=== PATIENT | female | born 1985 | race Two or more races ===

== ENCOUNTER 2025-04-17 12:08 | Emergency (ER) | payer OTHER, SELFPAY ==
[2025-04-17 12:29] VITALS: BP 126/80; PULSE 82; RESP 18; TEMP 36.6; O2SAT 99
--- NOTE | 2025-04-17 12:37 | ED.URI ---
HPI - URI/Sore Throat General Chief Complaint: Upper Respiratory Infection Stated Complaint: Congestion/Sore Throat/Ear Pain Time Seen by Provider: 04/17/25 12:37 History of Present Illness HPI Narrative: 39 y/o female presented for c/o nasal congestion, sinus pressure and cough for over one week. Now reports right ear pain and sore throat. Has been taking multiple otc meds without much improvement. Denies cp,sob, wheezing, n/v/d/f/c. Related Data Allergies Allergy/AdvReac Type Severity Reaction Status Date / Time No Known Allergies Allergy Verified 04/17/25 12:37 Review of Systems Review of Systems: CONSTITUTIONAL: Denies body aches, fever, chills, or sweats. EYES: Denies visual changes, redness, or discharge. ENT: reports sore throat rhinorrhea, congestion, otalgia. CARDIOVASCULAR: Denies chest pain, palpitations, or edema. RESPIRATORY: Denies dyspnea. GASTROINTESTINAL: Denies abdominal pain, nausea, vomiting, or diarrhea. SKIN: Denies rash NEUROLOGIC: Denies headache Exam Narrative: GENERAL: mildly Ill-appearing, no acute distress. EYES: conjunctivae clear ENT: Mucous membranes moist. nasal congestion. TM pearly saldivar with normal light reflex bilaterally; no tragal tenderness. Oropharynx erythematous without lesions. No drooling, no hoarseness, no trismus, uvula midline. No tripod positioning, hot potato voice, or soft palate swelling. NECK: Supple. No lymphadenopathy CHEST: Clear to auscultation, breath sounds equal. No respiratory distress, speaks in full sentences. HEART: Regular rate and rhythm. No murmur heard. SKIN: Warm, dry, no rash. NEURO: Alert and oriented x3. Course Course Emergency Course: Patient is aware of diagnosis, understands and agrees to treatment plan. Anticipatory guidance given. Patient agrees to follow-up as directed and is aware of reasons to seek care at the emergency department. Portions of this record may have been created with voice recognition software Level of Care: Express Care Visit Vital Signs Vital signs: Vital Signs Temperature 98 F 04/17/25 12:29 Pulse Rate 82 04/17/25 12:29 Respiratory Rate 18 04/17/25 12:29 Blood Pressure 126/80 04/17/25 12:29 Pulse Oximetry 99 04/17/25 12:29 Oxygen Delivery Room Air 04/17/25 12:29 Temperature 98 F 04/17/25 12:29 Pulse Rate 82 04/17/25 12:29 Respiratory Rate 18 04/17/25 12:29 Blood Pressure 126/80 04/17/25 12:29 Pulse Oximetry 99 04/17/25 12:29 Oxygen Delivery Room Air 04/17/25 12:29 MDM - URI/Sore Throat MDM Narrative Medical decision making narrative: Discussed physical exam findings and reviewed prescription. Advise supportive treatments. Patient is appropriate for outpatient treatment and follow-up. Differential Diagnosis Differential diagnosis: Likely upper respiratory infection, viral infection and pharyngitis Discharge Plan Discharge Clinical Impression: Upper respiratory infection Patient Disposition: Home Condition: Stable Instructions: Antibiotic Form, Rhinosinusitis (ED) Additional Instructions: take antibiotic as directed Recommendations: Flonase spray and Zyrtec (or Claritin/Stefani) over the counter Cough syrup may cause drowsiness; avoid driving or take it at night time. Tylenol 1000mg every 8 hours as needed for pain Symptomatic treatment includes: rest, fluids, and increase humidity of the air at home. Follow up with your primary care provider in 1 week. Go to the ER for worsening symptoms or concerns. Patient Language: Mexican Prescriptions: New amoxicillin-pot clavulanate 875-125 mg tablet 1 tablet PO Q12H 7 Days Qty: 14 0RF Follow-up/Referrals: UNKNOWN,DOCTOR [Primary Care Provider] -
== END 2025-04-17 12:42 | disposition home or self-care (01) ==
PROVIDERS: Emergency Provider Nurse Practitioner Family
DX: J06.9 Acute upper respiratory infection, unspecified (principal)
CPT/HCPCS: 99203; G0463